=== PATIENT | male | born 1960 | race Caucasian/White ===

== ENCOUNTER 2021-09-23 19:56 | Inpatient (IN) | payer OTHER ==
[2021-09-23 20:21] VITALS: BMI 33.0
[2021-09-23] MEDS ORDERED: ONDANSETRON *ODT* 4 MG TABLET SL PRN (20:35)
[2021-09-23] MEDS ORDERED: P-EPHED 60MG/TRIPROLIDI 2.5MG TABLET PO PRN (20:35)
[2021-09-23] MEDS ORDERED: BISMUTH SUBSALICYLATE 524 MG/30 ML PO PRN (20:35)
[2021-09-23] MEDS ORDERED: NALOXONE (NARCAN) HCL 4 MG/0.1 ML SPRAY NS PRN (20:35)
[2021-09-23] MEDS ORDERED: MAG HYDROX/AL HYDROX/SIMETH 30 ML UNIT-DOSE CUP PO PRN (20:35)
[2021-09-23] MEDS ORDERED: DICYCLOMINE HCL 10 MG CAPSULE PO PRN (20:35)
[2021-09-23] MEDS ORDERED: IBUPROFEN 400 MG TABLET (FP) PO PRN (20:35)
[2021-09-23] MEDS ORDERED: MENTHOL/PHENOL 1 EACH UD MM PRN (20:35)
[2021-09-23] MEDS ORDERED: MAGNESIUM CITRATE 300 ML BOTTLE PO PRN (20:35)
[2021-09-23] MEDS ORDERED: guaiFENesin 200 MG/10 ML 10 ML UNIT-DOSE CUPS PO PRN (20:35)
[2021-09-23] MEDS ORDERED: NALOXONE HCL 0.4 MG/ML VIAL IM PRN (20:35)
[2021-09-23] MEDS ORDERED: MELATONIN 5 MG TABLETS PO SCH (22:00)
[2021-09-23] MEDS ORDERED: QUEtiapine FUMARATE 50 MG TABLET PO ONE (22:00)
[2021-09-23] MEDS: ASPIRIN 81 MG CHEWABLE TABLETS PO SCH (22:31)
[2021-09-23] MEDS: THIAMINE HCL 100 MG TABLET (FP) PO SCH (22:31)
[2021-09-24] MEDS: hydrOXYzine PAMOATE 25 MG CAPSULE (FP) PO PRN ×2 (00:05→04:04)
[2021-09-24] MEDS: METHOCARBAMOL 500 MG TABLET PO PRN ×2 (00:05→06:09)
[2021-09-24] MEDS ORDERED: diazePAM 5 MG TABLET PO SCH (05:00)
[2021-09-24] MEDS ORDERED: metoPROLOL SUCCINATE 25 MG TAB.SR.24H (FP) PO SCH ×3 (06:20→10:00)
[2021-09-24] MEDS: NICOTINE 10 MG CARTRIDGE (INHALER) IH PRN (06:31)
[2021-09-24] MEDS: MAGNESIUM HYDROX 2400MG/30ML ORAL SUSPENSION 30 ML CUP PO PRN ×2 (06:38→23:03)
[2021-09-24] MEDS ORDERED: methaDONE HCL 10 MG TABLET (FOR DETOX USE ONLY) PO ONE (07:14)
[2021-09-24] MEDS: diazePAM 5 MG TABLET PO SCH ×4 (07:38→23:02)
[2021-09-24] MEDS: ASPIRIN 81 MG CHEWABLE TABLETS PO SCH ×2 (09:54→23:01)
[2021-09-24] MEDS: cloNIDine HCL 0.1 MG TABLET PO PRN (09:54)
[2021-09-24] MEDS: CLOPIDOGREL BISULFATE 75 MG TABLET (FP) PO SCH (09:54)
[2021-09-24] MEDS: NICOTINE 21 MG/24 HOURS TOPICAL PATCH TD SCH (09:55)
[2021-09-24] MEDS ORDERED: PATIENT'S OWN MEDICATION (NON-FORMULARY) (Finasteride [Finasteride] 1 MG Tablet) PO SCH (10:00)
[2021-09-24] MEDS: PRENATAL VITAMINS W/ FOLIC ACID TABLET (FP) PO SCH (11:07)
[2021-09-24] MEDS: amLODIPine BESYLATE 10 MG TABLET (FP) PO SCH (12:37)
[2021-09-24] MEDS: ACETAMINOPHEN 325 MG TABLET (FP) PO PRN (12:43)
[2021-09-24] MEDS: THIAMINE HCL 100 MG TABLET (FP) PO SCH (23:01)
[2021-09-24] MEDS: ROSUVASTATIN CA 10 MG TABLET (FP) PO SCH (23:02)
[2021-09-24] MEDS: metoPROLOL SUCCINATE 25 MG TAB.SR.24H (FP) PO SCH (23:02)
[2021-09-24] MEDS: QUEtiapine FUMARATE 100 MG TABLET (FP) PO PRN (23:05)
[2021-09-25] MEDS: diazePAM 5 MG TABLET PO SCH ×3 (05:25→23:01)
[2021-09-25] MEDS ORDERED: methaDONE HCL 10 MG TABLET (FOR DETOX USE ONLY) ONE (09:41)
[2021-09-25] MEDS: ASPIRIN 81 MG CHEWABLE TABLETS PO SCH ×2 (10:15→23:00)
[2021-09-25] MEDS: amLODIPine BESYLATE 10 MG TABLET (FP) PO SCH (10:15)
[2021-09-25] MEDS: CLOPIDOGREL BISULFATE 75 MG TABLET (FP) PO SCH (10:15)
[2021-09-25] MEDS: PRENATAL VITAMINS W/ FOLIC ACID TABLET (FP) PO SCH (10:15)
[2021-09-25] MEDS: metoPROLOL SUCCINATE 25 MG TAB.SR.24H (FP) PO SCH ×2 (10:15→23:01)
[2021-09-25] MEDS: NICOTINE 21 MG/24 HOURS TOPICAL PATCH TD SCH (10:17)
[2021-09-25] MEDS: diazePAM 5 MG TABLET PO PRN (10:19)
[2021-09-25] MEDS ORDERED: FLU VACC QS2021-22(6MOS UP)/PF 60 MCG/0.5 ML SYRINGE IM ONE (12:00)
[2021-09-25] MEDS: cloNIDine HCL 0.1 MG TABLET PO PRN (12:17)
[2021-09-25 12:25] LABS: HEMATOCRIT 38.3 % (35.4-49); HEMOGLOBIN 12.9 GM/dL (11.7-16.9); MCH 29.4 pg (25.7-33.7); MCHC 33.7 g/dl (32.0-35.9); MEAN CELL VOLUME 87.4 fl (80-96); MEAN PLT VOLUME 8.4 fl (7.5-11.1); PLATELET COUNT 193 10^3/uL (134-434); RBC 4.38 M/mm3 (4.00-5.60); WHITE BLOOD COUNT 4.2 K/mm3 (4.0-10.0)
[2021-09-25 12:30] LABS: CALCIUM 8.9 mg/dL (8.5-10.1)
[2021-09-25 12:31] LABS: ALBUMIN 3.5 g/dl (3.4-5.0)
[2021-09-25 12:34] LABS: CREATININE 0.9 mg/dL (0.55-1.3)
[2021-09-25 12:35] LABS: BILIRUBIN,TOTAL 0.6 mg/dL (0.2-1); TOT PROT 6.6 g/dl (6.4-8.2)
[2021-09-25] MEDS: QUEtiapine FUMARATE 100 MG TABLET (FP) PO PRN (23:00)
[2021-09-25] MEDS: THIAMINE HCL 100 MG TABLET (FP) PO SCH (23:00)
[2021-09-25] MEDS: ROSUVASTATIN CA 10 MG TABLET (FP) PO SCH (23:01)
[2021-09-25] MEDS: NICOTINE 10 MG CARTRIDGE (INHALER) IH PRN (23:05)
[2021-09-25] MEDS: MAGNESIUM HYDROX 2400MG/30ML ORAL SUSPENSION 30 ML CUP PO PRN (23:20)
[2021-09-26] MEDS: ROSUVASTATIN CA 10 MG TABLET (FP) PO SCH ×2 (00:44→22:07)
[2021-09-26] MEDS: diazePAM 5 MG TABLET PO SCH ×2 (05:16→17:12)
[2021-09-26] MEDS ORDERED: methaDONE HCL 10 MG TABLET (FOR DETOX USE ONLY) PO ONE ×2 (10:00)
[2021-09-26] MEDS: PRENATAL VITAMINS W/ FOLIC ACID TABLET (FP) PO SCH (10:20)
[2021-09-26] MEDS: diazePAM 5 MG TABLET PO PRN (10:20)
[2021-09-26] MEDS: ASPIRIN 81 MG CHEWABLE TABLETS PO SCH ×2 (10:22→22:07)
[2021-09-26] MEDS: CLOPIDOGREL BISULFATE 75 MG TABLET (FP) PO SCH (10:22)
[2021-09-26] MEDS: NICOTINE 21 MG/24 HOURS TOPICAL PATCH TD SCH (10:22)
[2021-09-26] MEDS: amLODIPine BESYLATE 10 MG TABLET (FP) PO SCH (10:22)
[2021-09-26] MEDS: metoPROLOL SUCCINATE 25 MG TAB.SR.24H (FP) PO SCH ×2 (10:22→22:07)
[2021-09-26] MEDS: DOCUSATE SODIUM 100 MG CAPSULE (FP) PO SCH ×2 (14:41→22:07)
[2021-09-26] MEDS: THIAMINE HCL 100 MG TABLET (FP) PO SCH (22:07)
[2021-09-26] MEDS: QUEtiapine FUMARATE 100 MG TABLET (FP) PO PRN (22:08)
[2021-09-27] MEDS: DOCUSATE SODIUM 100 MG CAPSULE (FP) PO SCH ×3 (05:44→21:22)
[2021-09-27] MEDS ORDERED: diazePAM 5 MG TABLET PO ONE (06:00)
[2021-09-27] MEDS: metoPROLOL SUCCINATE 25 MG TAB.SR.24H (FP) PO SCH ×2 (10:03→21:23)
[2021-09-27] MEDS: ASPIRIN 81 MG CHEWABLE TABLETS PO SCH ×2 (10:03→21:23)
[2021-09-27] MEDS: CLOPIDOGREL BISULFATE 75 MG TABLET (FP) PO SCH (10:03)
[2021-09-27] MEDS: PRENATAL VITAMINS W/ FOLIC ACID TABLET (FP) PO SCH (10:03)
[2021-09-27] MEDS: NICOTINE 21 MG/24 HOURS TOPICAL PATCH TD SCH (10:03)
[2021-09-27] MEDS: amLODIPine BESYLATE 10 MG TABLET (FP) PO SCH (10:03)
[2021-09-27] MEDS: MAGNESIUM HYDROX 2400MG/30ML ORAL SUSPENSION 30 ML CUP PO PRN (10:05)
[2021-09-27] MEDS: ACETAMINOPHEN 325 MG TABLET (FP) PO PRN ×3 (11:23→21:42)
[2021-09-27] MEDS: NICOTINE 10 MG CARTRIDGE (INHALER) IH PRN ×2 (14:01→21:22)
[2021-09-27] MEDS: THIAMINE HCL 100 MG TABLET (FP) PO SCH (21:23)
[2021-09-27] MEDS: QUEtiapine FUMARATE 100 MG TABLET (FP) PO PRN (23:02)
[2021-09-27] MEDS: ROSUVASTATIN CA 10 MG TABLET (FP) PO SCH (23:41)
[2021-09-28] MEDS: ACETAMINOPHEN 325 MG TABLET (FP) PO PRN ×4 (03:00→22:33)
[2021-09-28] MEDS: DOCUSATE SODIUM 100 MG CAPSULE (FP) PO SCH ×2 (06:07→14:50)
[2021-09-28] MEDS: METHOCARBAMOL 500 MG TABLET PO PRN (06:07)
[2021-09-28] MEDS ORDERED: ACETAMINOPHEN 325 MG TABLET (FP) PO ONE (07:30)
[2021-09-28] MEDS: CLOPIDOGREL BISULFATE 75 MG TABLET (FP) PO SCH (09:58)
[2021-09-28] MEDS: PRENATAL VITAMINS W/ FOLIC ACID TABLET (FP) PO SCH (09:58)
[2021-09-28] MEDS: metoPROLOL SUCCINATE 25 MG TAB.SR.24H (FP) PO SCH ×2 (09:58→21:11)
[2021-09-28] MEDS: NICOTINE 21 MG/24 HOURS TOPICAL PATCH TD SCH (09:58)
[2021-09-28] MEDS: ASPIRIN 81 MG CHEWABLE TABLETS PO SCH ×2 (09:58→21:11)
[2021-09-28] MEDS: amLODIPine BESYLATE 10 MG TABLET (FP) PO SCH (09:58)
[2021-09-28] MEDS: NICOTINE 10 MG CARTRIDGE (INHALER) IH PRN (09:59)
[2021-09-28] MEDS ORDERED: methaDONE HCL 10 MG TABLET (FOR DETOX USE ONLY) PO ONE (10:00)
[2021-09-28] MEDS: BACLOFEN 10 MG TABLET (FP) PO PRN (11:14)
[2021-09-28] MEDS: THIAMINE HCL 100 MG TABLET (FP) PO SCH (21:11)
[2021-09-28] MEDS: ROSUVASTATIN CA 10 MG TABLET (FP) PO SCH (21:12)
[2021-09-28] MEDS: QUEtiapine FUMARATE 100 MG TABLET (FP) PO PRN (22:33)
[2021-09-29] MEDS: DOCUSATE SODIUM 100 MG CAPSULE (FP) PO SCH ×4 (00:07→21:24)
[2021-09-29] MEDS: BACLOFEN 10 MG TABLET (FP) PO PRN ×3 (00:08→23:54)
[2021-09-29] MEDS ORDERED: cloNIDine HCL 0.1 MG TABLET PO ONE (00:45)
[2021-09-29] MEDS ORDERED: cloNIDine HCL 0.1 MG TABLET ONE (00:59)
[2021-09-29] MEDS: ACETAMINOPHEN 325 MG TABLET (FP) PO PRN ×3 (04:07→19:45)
[2021-09-29 07:25] VITALS: TEMP 96.9
[2021-09-29] MEDS: PRENATAL VITAMINS W/ FOLIC ACID TABLET (FP) PO SCH (09:30)
[2021-09-29] MEDS: ASPIRIN 81 MG CHEWABLE TABLETS PO SCH ×2 (09:30→21:25)
[2021-09-29] MEDS: CLOPIDOGREL BISULFATE 75 MG TABLET (FP) PO SCH (09:30)
[2021-09-29] MEDS: NICOTINE 21 MG/24 HOURS TOPICAL PATCH TD SCH (09:30)
[2021-09-29] MEDS: metoPROLOL SUCCINATE 25 MG TAB.SR.24H (FP) PO SCH ×2 (09:30→21:25)
[2021-09-29] MEDS: amLODIPine BESYLATE 10 MG TABLET (FP) PO SCH (09:30)
[2021-09-29] MEDS: MAGNESIUM HYDROX 2400MG/30ML ORAL SUSPENSION 30 ML CUP PO PRN (13:17)
[2021-09-29] MEDS ORDERED: QUEtiapine FUMARATE 100 MG TABLET (FP) PO PRN (15:34)
[2021-09-29] MEDS ORDERED: QUETIAPINE FUMARATE 100 MG, QUETIAPINE FUMARATE 25 MG PO PRN (15:53)
[2021-09-29] MEDS ORDERED: QUEtiapine FUMARATE 100 MG TABLET (FP) ONE (18:24)
[2021-09-29] MEDS ORDERED: QUEtiapine FUMARATE 25 MG TABLET ONE (18:24)
[2021-09-29] MEDS: ROSUVASTATIN CA 10 MG TABLET (FP) PO SCH (21:25)
[2021-09-29] MEDS: THIAMINE HCL 100 MG TABLET (FP) PO SCH (21:25)
[2021-09-29 22:07] VITALS: BP 163/90; PULSE 77
[2021-09-30] MEDS ORDERED: diphenhydrAMINE HCL 25 MG CAPSULE (FP) PO ONE (01:02)
== END 2021-09-30 02:15 | disposition left against medical advice (07) | DRG 894 ==
LOC: YASAS 19:56 → Y6N 21:37 → UNDOADMIN 21:37 → UNDODISIN 09-27 13:19 → Y5N 09-27 13:48
PROVIDERS: ADMIT Allergy & Immunology; ATTEND Allergy & Immunology
PROC: HZ2ZZZZ Detoxification Services for Substance Abuse Treatment (ICD-10-PCS; 2021-09-23)
PROC: HZ42ZZZ Group Counseling for Substance Abuse Treatment, Cognitive-Behavioral (ICD-10-PCS; principal; 2021-09-27)
DX: F10.20 Alcohol dependence, uncomplicated (principal); F11.20 Opioid dependence, uncomplicated; F19.280 Other psychoactive substance dependence with psychoactive substance-induced anxiety disorder; F19.282 Other psychoactive substance dependence with psychoactive substance-induced sleep disorder; F32.A Depression, unspecified; G47.00 Insomnia, unspecified; I25.10 Atherosclerotic heart disease of native coronary artery without angina pectoris; I10 Essential (primary) hypertension; Z95.5 Presence of coronary angioplasty implant and graft; Z96.652 Presence of left artificial knee joint; Z85.528 Personal history of other malignant neoplasm of kidney; Z88.0 Allergy status to penicillin
CPT/HCPCS: 36415; 80053; 85027; 86780; 90686; 93005; 93010; C9803; G0008; J0475; J0735; U0003; U0005

== ENCOUNTER 2021-10-21 14:32 | Inpatient (IN) | payer OTHER ==
[2021-10-21 15:47] VITALS: BMI 33.0
[2021-10-21] MEDS ORDERED: MENTHOL/PHENOL 1 EACH UD MM PRN (16:22)
[2021-10-21] MEDS ORDERED: DICYCLOMINE HCL 10 MG CAPSULE PO PRN (16:22)
[2021-10-21] MEDS ORDERED: ACETAMINOPHEN 325 MG TABLET (FP) PO PRN (16:22)
[2021-10-21] MEDS ORDERED: BISMUTH SUBSALICYLATE 524 MG/30 ML PO PRN (16:22)
[2021-10-21] MEDS ORDERED: MAGNESIUM CITRATE 300 ML BOTTLE PO PRN (16:22)
[2021-10-21] MEDS ORDERED: ONDANSETRON *ODT* 4 MG TABLET SL PRN (16:22)
[2021-10-21] MEDS ORDERED: LOPERAMIDE HCL 2 MG CAPSULE PO PRN (16:22)
[2021-10-21] MEDS ORDERED: MAG HYDROX/AL HYDROX/SIMETH 30 ML UNIT-DOSE CUP PO PRN (16:22)
[2021-10-21] MEDS ORDERED: CEPHALEXIN MONOHYDRATE 250 MG CAPSULE (FP) PO SCH (17:30)
[2021-10-21] MEDS: diazePAM 5 MG TABLET PO PRN (18:38)
[2021-10-21] MEDS: CEPHALEXIN MONOHYDRATE 500 MG CAPSULE (UD) PO SCH (18:38)
[2021-10-21] MEDS: hydrOXYzine PAMOATE 25 MG CAPSULE (FP) PO PRN ×2 (18:38→22:49)
[2021-10-21] MEDS: METHOCARBAMOL 500 MG TABLET PO PRN (21:20)
[2021-10-21] MEDS ORDERED: MELATONIN 5 MG TABLETS PO SCH (22:00)
[2021-10-21] MEDS: THIAMINE HCL 100 MG TABLET (FP) PO SCH (22:48)
[2021-10-21] MEDS: ROSUVASTATIN CA 10 MG TABLET (FP) PO SCH (22:49)
[2021-10-21] MEDS ORDERED: QUEtiapine FUMARATE 25 MG TABLET PO ONE (23:42)
[2021-10-22] MEDS: DOXYCYCLINE HYCLATE 100 MG CAPSULE PO SCH ×3 (00:45→22:07)
[2021-10-22] MEDS: CEPHALEXIN MONOHYDRATE 500 MG CAPSULE (UD) PO SCH ×4 (01:20→17:29)
[2021-10-22] MEDS: diazePAM 5 MG TABLET PO PRN (01:27)
[2021-10-22] MEDS: hydrOXYzine PAMOATE 25 MG CAPSULE (FP) PO PRN ×4 (05:16→22:06)
[2021-10-22] MEDS: METHOCARBAMOL 500 MG TABLET PO PRN (05:16)
[2021-10-22] MEDS ORDERED: methaDONE HCL 10 MG TABLET (FOR DETOX USE ONLY) PO ONE (09:12)
[2021-10-22] MEDS ORDERED: diazePAM 5 MG TABLET PO PRN ×2 (09:14→10:16)
[2021-10-22] MEDS: ASPIRIN 81 MG CHEWABLE TABLETS PO SCH (09:34)
[2021-10-22] MEDS ORDERED: amLODIPine BESYLATE 10 MG TABLET (FP) PO SCH (10:00)
[2021-10-22] MEDS ORDERED: RIVAROXABAN 20 MG TABLET PO SCH (10:00)
[2021-10-22] MEDS: PRENATAL VITAMINS W/ FOLIC ACID TABLET (FP) PO SCH (10:32)
[2021-10-22] MEDS: NICOTINE 7 MG/24 HOURS TOPICAL PATCH TD SCH (10:32)
[2021-10-22] MEDS: diazePAM 5 MG TABLET PO SCH ×3 (11:52→22:07)
[2021-10-22] MEDS: ACETAMINOPHEN 325 MG TABLET (FP) PO PRN (14:07)
[2021-10-22] MEDS: THIAMINE HCL 100 MG TABLET (FP) PO SCH (22:06)
[2021-10-22] MEDS: ROSUVASTATIN CA 10 MG TABLET (FP) PO SCH (22:09)
[2021-10-22] MEDS: QUEtiapine FUMARATE 100 MG TABLET (FP) PO PRN (22:09)
[2021-10-23] MEDS: ACETAMINOPHEN 325 MG TABLET (FP) PO PRN ×2 (00:47→10:14)
[2021-10-23] MEDS: CEPHALEXIN MONOHYDRATE 500 MG CAPSULE (UD) PO SCH ×4 (00:47→17:54)
[2021-10-23] MEDS: diazePAM 5 MG TABLET PO SCH ×4 (05:31→22:11)
[2021-10-23] MEDS ORDERED: amLODIPine BESYLATE 10 MG TABLET (FP) PO ONE (07:47)
[2021-10-23] MEDS: MAGNESIUM HYDROX 2400MG/30ML ORAL SUSPENSION 30 ML CUP PO PRN (08:40)
[2021-10-23] MEDS: hydrOXYzine PAMOATE 25 MG CAPSULE (FP) PO PRN (09:21)
[2021-10-23] MEDS: ASPIRIN 81 MG CHEWABLE TABLETS PO SCH (09:21)
[2021-10-23] MEDS: METHOCARBAMOL 500 MG TABLET PO PRN (09:21)
[2021-10-23] MEDS ORDERED: methaDONE HCL 10 MG TABLET (FOR DETOX USE ONLY) PO ONE (10:00)
[2021-10-23] MEDS: PRENATAL VITAMINS W/ FOLIC ACID TABLET (FP) PO SCH (10:41)
[2021-10-23] MEDS: NICOTINE 7 MG/24 HOURS TOPICAL PATCH TD SCH (10:41)
[2021-10-23] MEDS: DOXYCYCLINE HYCLATE 100 MG CAPSULE PO SCH ×2 (13:53→22:10)
[2021-10-23] MEDS: DOCUSATE SODIUM 100 MG CAPSULE (FP) PO PRN ×2 (14:56→22:14)
[2021-10-23] MEDS: RIVAROXABAN 20 MG TABLET PO SCH (17:55)
[2021-10-23] MEDS: THIAMINE HCL 100 MG TABLET (FP) PO SCH (22:10)
[2021-10-23] MEDS: ROSUVASTATIN CA 10 MG TABLET (FP) PO SCH (22:10)
[2021-10-23] MEDS: QUEtiapine FUMARATE 100 MG TABLET (FP) PO PRN ×2 (22:14→22:58)
[2021-10-24] MEDS: CEPHALEXIN MONOHYDRATE 500 MG CAPSULE (UD) PO SCH ×4 (01:41→17:35)
[2021-10-24] MEDS: amLODIPine BESYLATE 10 MG TABLET (FP) PO SCH (06:31)
[2021-10-24] MEDS: diazePAM 5 MG TABLET PO SCH ×3 (06:32→22:13)
[2021-10-24] MEDS ORDERED: amLODIPine BESYLATE 10 MG TABLET (FP) PO SCH (10:00)
[2021-10-24] MEDS ORDERED: methaDONE HCL 10 MG TABLET (FOR DETOX USE ONLY) PO ONE (10:00)
[2021-10-24] MEDS: ASPIRIN 81 MG CHEWABLE TABLETS PO SCH (10:12)
[2021-10-24] MEDS: METHOCARBAMOL 500 MG TABLET PO PRN (10:12)
[2021-10-24] MEDS: hydrOXYzine PAMOATE 25 MG CAPSULE (FP) PO PRN ×2 (10:12→17:36)
[2021-10-24] MEDS: NICOTINE 7 MG/24 HOURS TOPICAL PATCH TD SCH (10:13)
[2021-10-24] MEDS: PRENATAL VITAMINS W/ FOLIC ACID TABLET (FP) PO SCH (10:13)
[2021-10-24] MEDS: DOXYCYCLINE HYCLATE 100 MG CAPSULE PO SCH ×2 (10:14→22:14)
[2021-10-24] MEDS: ACETAMINOPHEN 325 MG TABLET (FP) PO PRN (11:17)
[2021-10-24] MEDS: RIVAROXABAN 20 MG TABLET PO SCH (17:35)
[2021-10-24] MEDS: QUEtiapine FUMARATE 100 MG TABLET (FP) PO PRN (22:13)
[2021-10-24] MEDS: ROSUVASTATIN CA 10 MG TABLET (FP) PO SCH (22:13)
[2021-10-24] MEDS: THIAMINE HCL 100 MG TABLET (FP) PO SCH (22:14)
[2021-10-25] MEDS: amLODIPine BESYLATE 10 MG TABLET (FP) PO SCH (05:27)
[2021-10-25] MEDS: diazePAM 5 MG TABLET PO SCH ×2 (05:27→18:03)
[2021-10-25] MEDS: ACETAMINOPHEN 325 MG TABLET (FP) PO PRN ×2 (05:28→18:02)
[2021-10-25] MEDS: DOCUSATE SODIUM 100 MG CAPSULE (FP) PO PRN ×3 (05:32→22:51)
[2021-10-25] MEDS ORDERED: methaDONE HCL 10 MG TABLET (FOR DETOX USE ONLY) PO ONE (10:00)
[2021-10-25] MEDS: NICOTINE 7 MG/24 HOURS TOPICAL PATCH TD SCH (10:43)
[2021-10-25] MEDS: hydrOXYzine PAMOATE 25 MG CAPSULE (FP) PO PRN (10:43)
[2021-10-25] MEDS: PRENATAL VITAMINS W/ FOLIC ACID TABLET (FP) PO SCH (10:43)
[2021-10-25] MEDS: ASPIRIN 81 MG CHEWABLE TABLETS PO SCH (10:43)
[2021-10-25] MEDS: RIVAROXABAN 20 MG TABLET PO SCH (18:04)
[2021-10-25] MEDS: QUEtiapine FUMARATE 100 MG TABLET (FP) PO PRN (22:13)
[2021-10-25] MEDS: ROSUVASTATIN CA 10 MG TABLET (FP) PO SCH (22:13)
[2021-10-25] MEDS: THIAMINE HCL 100 MG TABLET (FP) PO SCH (22:14)
[2021-10-26] MEDS: amLODIPine BESYLATE 10 MG TABLET (FP) PO SCH (05:08)
[2021-10-26] MEDS: DOCUSATE SODIUM 100 MG CAPSULE (FP) PO PRN (05:17)
[2021-10-26] MEDS: ACETAMINOPHEN 325 MG TABLET (FP) PO PRN ×2 (05:59→12:26)
[2021-10-26] MEDS ORDERED: diazePAM 5 MG TABLET PO ONE (06:00)
[2021-10-26] MEDS ORDERED: methaDONE HCL 10 MG TABLET (FOR DETOX USE ONLY) PO ONE (10:00)
[2021-10-26] MEDS: PRENATAL VITAMINS W/ FOLIC ACID TABLET (FP) PO SCH (10:20)
[2021-10-26] MEDS: ASPIRIN 81 MG CHEWABLE TABLETS PO SCH (10:21)
[2021-10-26] MEDS: NICOTINE 7 MG/24 HOURS TOPICAL PATCH TD SCH (10:21)
[2021-10-26] MEDS: MAGNESIUM HYDROX 2400MG/30ML ORAL SUSPENSION 30 ML CUP PO PRN (11:15)
[2021-10-26 13:31] VITALS: BP 158/76; PULSE 82; TEMP 97.3
== END 2021-10-26 14:32 | disposition home or self-care (01) | DRG 897 ==
LOC: YASAS 14:32 → Y6N 16:55
PROVIDERS: ADMIT Allergy & Immunology; ATTEND Allergy & Immunology
PROC: HZ2ZZZZ Detoxification Services for Substance Abuse Treatment (ICD-10-PCS; principal; 2021-10-21)
DX: F11.23 Opioid dependence with withdrawal (principal); F19.282 Other psychoactive substance dependence with psychoactive substance-induced sleep disorder; F19.280 Other psychoactive substance dependence with psychoactive substance-induced anxiety disorder; F10.230 Alcohol dependence with withdrawal, uncomplicated; F17.210 Nicotine dependence, cigarettes, uncomplicated; F19.24 Other psychoactive substance dependence with psychoactive substance-induced mood disorder; I10 Essential (primary) hypertension; I25.10 Atherosclerotic heart disease of native coronary artery without angina pectoris; E78.1 Pure hyperglyceridemia; M17.0 Bilateral primary osteoarthritis of knee; R00.0 Tachycardia, unspecified; Z96.652 Presence of left artificial knee joint; Z95.5 Presence of coronary angioplasty implant and graft; Z56.0 Unemployment, unspecified
CPT/HCPCS: C9803; U0003; U0005

== ENCOUNTER 2021-11-10 09:54 | Inpatient (IN) | payer OTHER ==
[2021-11-10] MEDS ORDERED: diazePAM 5 MG TABLET PO PRN (10:54)
[2021-11-10] MEDS ORDERED: MAGNESIUM CITRATE 300 ML BOTTLE PO PRN (10:54)
[2021-11-10] MEDS ORDERED: ACETAMINOPHEN 325 MG TABLET (FP) PO PRN ×2 (10:54)
[2021-11-10] MEDS ORDERED: MENTHOL/PHENOL 1 EACH UD MM PRN (10:54)
[2021-11-10] MEDS ORDERED: BISMUTH SUBSALICYLATE 262 MG/15 ML BTL PO PRN (10:54)
[2021-11-10] MEDS ORDERED: MAGNESIUM HYDROX 2400MG/30ML ORAL SUSPENSION 30 ML CUP PO PRN (10:54)
[2021-11-10] MEDS ORDERED: ONDANSETRON *ODT* 4 MG TABLET SL PRN (10:54)
[2021-11-10] MEDS ORDERED: MAG HYDROX/AL HYDROX/SIMETH 30 ML UNIT-DOSE CUP PO PRN (10:54)
[2021-11-10] MEDS ORDERED: IBUPROFEN 400 MG TABLET (FP) PO PRN (10:54)
[2021-11-10 11:17] VITALS: BMI 33.0
[2021-11-10] MEDS ORDERED: diazePAM 5 MG TABLET ONE (11:39)
[2021-11-10] MEDS: diazePAM 5 MG TABLET PO SCH ×3 (11:43→22:18)
[2021-11-10] MEDS: hydrOXYzine PAMOATE 25 MG CAPSULE (FP) PO SCH ×3 (13:17→22:17)
[2021-11-10] MEDS ORDERED: MELATONIN 5 MG TABLETS PO SCH (22:00)
[2021-11-10] MEDS ORDERED: QUEtiapine FUMARATE 100 MG TABLET (FP) PO PRN (22:00)
[2021-11-10] MEDS ORDERED: ROSUVASTATIN CA 10 MG TABLET PO SCH (22:00)
[2021-11-10] MEDS ORDERED: metoPROLOL SUCCINATE 25 MG TAB.SR.24H (FP) PO SCH (22:00)
[2021-11-10] MEDS ORDERED: THIAMINE HCL 100 MG TABLET (FP) PO SCH (22:00)
[2021-11-10] MEDS: METHOCARBAMOL 500 MG TABLET PO PRN (22:17)
[2021-11-11] MEDS: hydrOXYzine PAMOATE 25 MG CAPSULE (FP) PO SCH ×4 (05:03→17:42)
[2021-11-11] MEDS: diazePAM 5 MG TABLET PO SCH ×3 (05:03→17:43)
[2021-11-11] MEDS ORDERED: PRENATAL VITAMINS W/ FOLIC ACID TABLET (FP) PO SCH (10:00)
[2021-11-11] MEDS: METHOCARBAMOL 500 MG TABLET PO PRN ×2 (10:06→19:40)
[2021-11-11] MEDS ORDERED: PATIENT'S OWN MEDICATION (NON-FORMULARY) (Finasteride [Finasteride] 1 MG Tablet) PO SCH (11:00)
[2021-11-11] MEDS ORDERED: amLODIPine BESYLATE 10 MG TABLET (FP) PO SCH (11:00)
[2021-11-11] MEDS: NICOTINE 10 MG CARTRIDGE (INHALER) IH PRN ×2 (11:29→18:05)
[2021-11-11] MEDS ORDERED: QUEtiapine FUMARATE 100 MG TABLET (FP) PO PRN (11:46)
[2021-11-11] MEDS ORDERED: NICOTINE 14 MG/24 HOURS TOPICAL PATCH TD SCH (12:45)
[2021-11-11] MEDS ORDERED: RIVAROXABAN 20 MG TABLET PO SCH ×2 (18:00)
[2021-11-11 21:22] VITALS: BP 139/84; PULSE 100; TEMP 98.9
[2021-11-11] MEDS ORDERED: PHENOL 177 ML SPRAY BOTTLE MM PRN (22:35)
[2021-11-12] MEDS ORDERED: diazePAM 5 MG TABLET PO SCH (06:00)
[2021-11-12] MEDS ORDERED: ASPIRIN 81 MG CHEWABLE TABLETS PO SCH (07:00)
[2021-11-13] MEDS ORDERED: diazePAM 5 MG TABLET PO SCH (06:00)
[2021-11-14] MEDS ORDERED: diazePAM 5 MG TABLET PO ONE (06:00)
== END 2021-11-11 22:55 | disposition left against medical advice (07) | DRG 894 ==
LOC: YASAS 09:54 → Y6N 12:47
PROVIDERS: ADMIT Allergy & Immunology; ATTEND Allergy & Immunology
PROC: HZ2ZZZZ Detoxification Services for Substance Abuse Treatment (ICD-10-PCS; principal; 2021-11-10)
DX: F10.230 Alcohol dependence with withdrawal, uncomplicated (principal); F17.210 Nicotine dependence, cigarettes, uncomplicated; E78.5 Hyperlipidemia, unspecified; I25.10 Atherosclerotic heart disease of native coronary artery without angina pectoris; I10 Essential (primary) hypertension; M17.0 Bilateral primary osteoarthritis of knee; Z96.652 Presence of left artificial knee joint; Z95.1 Presence of aortocoronary bypass graft; Z95.5 Presence of coronary angioplasty implant and graft; Z79.01 Long term (current) use of anticoagulants; Z88.0 Allergy status to penicillin
CPT/HCPCS: C9803; U0003; U0005

== ENCOUNTER 2022-03-11 11:16 | Inpatient (IN) | payer OTHER ==
[2022-03-11] MEDS ORDERED: ACETAMINOPHEN 325 MG TABLET (FP) PO PRN (13:29)
[2022-03-11] MEDS ORDERED: LOPERAMIDE HCL 2 MG CAPSULE PO PRN (13:29)
[2022-03-11] MEDS ORDERED: DICYCLOMINE HCL 10 MG CAPSULE PO PRN (13:29)
[2022-03-11] MEDS ORDERED: ONDANSETRON *ODT* 4 MG TABLET SL PRN (13:29)
[2022-03-11] MEDS ORDERED: MAG HYDROX/AL HYDROX/SIMETH 30 ML UNIT-DOSE CUP PO PRN (13:29)
[2022-03-11] MEDS ORDERED: BENZOCAINE/MENTHOL (CHLORASEPTIC ) LOZENGE MM PRN (13:29)
[2022-03-11] MEDS ORDERED: LORazepam 1 MG TABLET PO PRN (13:29)
[2022-03-11] MEDS ORDERED: MAGNESIUM CITRATE 300 ML BOTTLE PO PRN (13:29)
[2022-03-11 13:42] VITALS: BMI 34.7
[2022-03-11] MEDS ORDERED: LORazepam 1 MG TABLET ONE (13:52)
[2022-03-11] MEDS ORDERED: chlordiazePOXIDE HCL 25 MG CAPSULE PO ONE (16:54)
[2022-03-11] MEDS ORDERED: chlordiazePOXIDE HCL 25 MG CAPSULE PO PRN (16:54)
[2022-03-11] MEDS ORDERED: LORazepam 2 MG TABLET PO SCH (17:00)
[2022-03-11] MEDS: ACETAMINOPHEN 325 MG TABLET (FP) PO PRN (21:12)
[2022-03-11] MEDS: ROSUVASTATIN CA 10 MG TABLET PO SCH (22:21)
[2022-03-11] MEDS: chlordiazePOXIDE HCL 25 MG CAPSULE PO SCH (22:21)
[2022-03-11] MEDS: MELATONIN 5 MG TABLETS PO SCH (22:21)
[2022-03-11] MEDS: metoPROLOL SUCCINATE 25 MG TAB.SR.24H (FP) PO SCH (22:21)
[2022-03-11] MEDS: THIAMINE HCL 100 MG TABLET (FP) PO SCH (22:21)
[2022-03-12] MEDS: ACETAMINOPHEN 325 MG TABLET (FP) PO PRN ×2 (02:16→12:10)
[2022-03-12] MEDS: chlordiazePOXIDE HCL 25 MG CAPSULE PO SCH ×4 (05:16→22:22)
[2022-03-12] MEDS: ASPIRIN 81 MG CHEWABLE TABLETS PO SCH (06:20)
[2022-03-12] MEDS ORDERED: PATIENT'S OWN MEDICATION (NON-FORMULARY) (Finasteride [Finasteride] 1 MG Tablet) PO SCH (10:00)
[2022-03-12] MEDS: metoPROLOL SUCCINATE 25 MG TAB.SR.24H (FP) PO SCH ×2 (10:14→21:29)
[2022-03-12] MEDS: PRENATAL VITAMINS W/ FOLIC ACID TABLET (FP) PO SCH (10:15)
[2022-03-12] MEDS: amLODIPine BESYLATE 10 MG TABLET (FP) PO SCH (10:17)
[2022-03-12] MEDS: hydrOXYzine PAMOATE 25 MG CAPSULE (FP) PO PRN (12:09)
[2022-03-12] MEDS: FINASTERIDE 5 MG TABLET (FP) PO SCH (12:09)
[2022-03-12 12:32] LABS: HEMATOCRIT 26.2 % (35.4-49); HEMOGLOBIN 8.2 GM/dL (11.7-16.9); INR 1.07 (0.83-1.09); MCH 20.8 pg (25.7-33.7); MCHC 31.2 g/dl (32.0-35.9); MEAN CELL VOLUME 66.7 fl (80-96); MEAN PLT VOLUME 7.9 fl (7.5-11.1); PLATELET COUNT 265 10^3/uL (134-434); PROTHROMBIN TIME (PATIENT) 12.3 SEC (9.7-13.0); RBC 3.92 M/mm3 (4.00-5.60); RDW 23.5 % (11.9-15.9); WHITE BLOOD COUNT 3.9 K/mm3 (4.0-10.0)
[2022-03-12 13:14] LABS: ALBUMIN 3.6 g/dl (3.4-5.0); CALCIUM 8.6 mg/dL (8.5-10.1)
[2022-03-12 13:17] LABS: CREATININE 1.1 mg/dL (0.55-1.3)
[2022-03-12 13:19] LABS: BILIRUBIN,TOTAL 0.8 mg/dL (0.2-1)
[2022-03-12 13:20] LABS: TOT PROT 6.5 g/dl (6.4-8.2)
[2022-03-12] MEDS: RIVAROXABAN 20 MG TABLET PO SCH (18:17)
[2022-03-12] MEDS: NICOTINE 10 MG CARTRIDGE (INHALER) IH PRN (18:19)
[2022-03-12] MEDS: QUEtiapine FUMARATE 100 MG TABLET (FP) PO PRN (21:28)
[2022-03-12] MEDS: MELATONIN 5 MG TABLETS PO SCH (21:29)
[2022-03-12] MEDS: ROSUVASTATIN CA 10 MG TABLET PO SCH (21:29)
[2022-03-12] MEDS: THIAMINE HCL 100 MG TABLET (FP) PO SCH (21:29)
[2022-03-13] MEDS ORDERED: LORazepam 1 MG TABLET PO SCH (05:00)
[2022-03-13] MEDS: chlordiazePOXIDE HCL 25 MG CAPSULE PO SCH ×5 (08:15→22:15)
[2022-03-13] MEDS: ASPIRIN 81 MG CHEWABLE TABLETS PO SCH (08:16)
[2022-03-13] MEDS: amLODIPine BESYLATE 10 MG TABLET (FP) PO SCH (10:23)
[2022-03-13] MEDS: PRENATAL VITAMINS W/ FOLIC ACID TABLET (FP) PO SCH (10:23)
[2022-03-13] MEDS: FINASTERIDE 5 MG TABLET (FP) PO SCH (10:24)
[2022-03-13] MEDS: metoPROLOL SUCCINATE 25 MG TAB.SR.24H (FP) PO SCH ×2 (10:24→22:17)
[2022-03-13] MEDS: ACETAMINOPHEN 325 MG TABLET (FP) PO PRN (15:54)
[2022-03-13 16:08] LABS: SARS-CoV-2 NAA Not Detected (Not Detected)
[2022-03-13] MEDS: RIVAROXABAN 20 MG TABLET PO SCH (18:06)
[2022-03-13] MEDS: ROSUVASTATIN CA 10 MG TABLET PO SCH (22:14)
[2022-03-13] MEDS: QUEtiapine FUMARATE 100 MG TABLET (FP) PO PRN (22:14)
[2022-03-13] MEDS: THIAMINE HCL 100 MG TABLET (FP) PO SCH (22:14)
[2022-03-13] MEDS: MELATONIN 5 MG TABLETS PO SCH (22:14)
[2022-03-13] MEDS: METHOCARBAMOL 500 MG TABLET PO PRN (22:15)
[2022-03-14] MEDS ORDERED: chlordiazePOXIDE HCL 10 MG CAPSULE PO PRN
[2022-03-14] MEDS: ACETAMINOPHEN 325 MG TABLET (FP) PO PRN ×2 (00:58→10:05)
[2022-03-14] MEDS ORDERED: LORazepam 0.5 MG TABLET PO SCH ×2 (05:00→22:00)
[2022-03-14] MEDS: ASPIRIN 81 MG CHEWABLE TABLETS PO SCH (07:09)
[2022-03-14] MEDS: chlordiazePOXIDE HCL 10 MG CAPSULE PO SCH ×2 (07:09→10:03)
[2022-03-14] MEDS: metoPROLOL SUCCINATE 25 MG TAB.SR.24H (FP) PO SCH ×2 (10:03→21:37)
[2022-03-14] MEDS: amLODIPine BESYLATE 10 MG TABLET (FP) PO SCH (10:03)
[2022-03-14] MEDS: PRENATAL VITAMINS W/ FOLIC ACID TABLET (FP) PO SCH (10:03)
[2022-03-14] MEDS: FINASTERIDE 5 MG TABLET (FP) PO SCH (10:06)
[2022-03-14] MEDS: METHOCARBAMOL 500 MG TABLET PO PRN ×2 (12:53→18:30)
[2022-03-14] MEDS: hydrOXYzine PAMOATE 25 MG CAPSULE (FP) PO PRN ×2 (12:53→18:30)
[2022-03-14] MEDS ORDERED: LORazepam 0.5 MG TABLET PO PRN ×2 (16:02)
[2022-03-14] MEDS: RIVAROXABAN 20 MG TABLET PO SCH (17:54)
[2022-03-14] MEDS: ROSUVASTATIN CA 10 MG TABLET PO SCH (21:37)
[2022-03-14] MEDS: THIAMINE HCL 100 MG TABLET (FP) PO SCH (21:37)
[2022-03-14] MEDS: QUEtiapine FUMARATE 100 MG TABLET (FP) PO PRN (21:38)
[2022-03-14] MEDS: DOCUSATE SODIUM 100 MG CAPSULE (FP) PO PRN (21:40)
[2022-03-14] MEDS: MELATONIN 5 MG TABLETS PO SCH (22:05)
[2022-03-15] MEDS ORDERED: chlordiazePOXIDE HCL 10 MG CAPSULE PO SCH (05:00)
[2022-03-15] MEDS ORDERED: LORazepam 0.5 MG TABLET PO ONE (05:00)
[2022-03-15] MEDS: ASPIRIN 81 MG CHEWABLE TABLETS PO SCH (06:05)
[2022-03-15] MEDS: LORazepam 0.5 MG TABLET PO SCH ×2 (06:06→17:55)
[2022-03-15] MEDS: MAGNESIUM HYDROX 2400MG/30ML ORAL SUSPENSION 30 ML CUP PO PRN (09:16)
[2022-03-15] MEDS: metoPROLOL SUCCINATE 25 MG TAB.SR.24H (FP) PO SCH ×2 (10:12→22:23)
[2022-03-15] MEDS: FINASTERIDE 5 MG TABLET (FP) PO SCH (10:12)
[2022-03-15] MEDS: amLODIPine BESYLATE 10 MG TABLET (FP) PO SCH (10:12)
[2022-03-15] MEDS: PRENATAL VITAMINS W/ FOLIC ACID TABLET (FP) PO SCH (10:12)
[2022-03-15 11:00] LABS: HEMATOCRIT 27.6 % (35.4-49); HEMOGLOBIN 8.4 GM/dL (11.7-16.9); MCHC 30.6 g/dl (32.0-35.9); MEAN CELL VOLUME 68.5 fl (80-96); MEAN PLT VOLUME 8.4 fl (7.5-11.1); PLATELET COUNT 257 10^3/uL (134-434); RBC 4.03 M/mm3 (4.00-5.60); RDW 23.7 % (11.9-15.9); RETICULOCYTES 2.64 % (0.5-1.5); WHITE BLOOD COUNT 6.3 K/mm3 (4.0-10.0)
[2022-03-15] MEDS: RIVAROXABAN 20 MG TABLET PO SCH (17:54)
[2022-03-15] MEDS: ROSUVASTATIN CA 10 MG TABLET PO SCH (22:23)
[2022-03-15] MEDS: DOCUSATE SODIUM 100 MG CAPSULE (FP) PO PRN (22:23)
[2022-03-15] MEDS: QUEtiapine FUMARATE 100 MG TABLET (FP) PO PRN (22:23)
[2022-03-15] MEDS: THIAMINE HCL 100 MG TABLET (FP) PO SCH (22:23)
[2022-03-15] MEDS: MELATONIN 5 MG TABLETS PO SCH (22:30)
[2022-03-16] MEDS: ACETAMINOPHEN 325 MG TABLET (FP) PO PRN ×3 (00:01→23:11)
[2022-03-16] MEDS ORDERED: chlordiazePOXIDE HCL 10 MG CAPSULE PO ONE (05:00)
[2022-03-16] MEDS ORDERED: LORazepam 0.5 MG TABLET PO ONE (06:00)
[2022-03-16] MEDS: FERROUS SO4 325 MG TABLET (FP) PO SCH ×3 (07:09→17:58)
[2022-03-16] MEDS: ASPIRIN 81 MG CHEWABLE TABLETS PO SCH (07:09)
[2022-03-16] MEDS: amLODIPine BESYLATE 10 MG TABLET (FP) PO SCH (10:19)
[2022-03-16] MEDS: metoPROLOL SUCCINATE 25 MG TAB.SR.24H (FP) PO SCH ×2 (10:19→21:38)
[2022-03-16] MEDS: PRENATAL VITAMINS W/ FOLIC ACID TABLET (FP) PO SCH (10:19)
[2022-03-16] MEDS: FINASTERIDE 5 MG TABLET (FP) PO SCH (10:19)
[2022-03-16] MEDS: DOCUSATE SODIUM 100 MG CAPSULE (FP) PO PRN (10:20)
[2022-03-16] MEDS: MAGNESIUM HYDROX 2400MG/30ML ORAL SUSPENSION 30 ML CUP PO PRN (10:20)
[2022-03-16] MEDS: NICOTINE POLACRILEX 2 MG GUM BUC PRN (16:43)
[2022-03-16] MEDS: NICOTINE 10 MG CARTRIDGE (INHALER) IH PRN (17:58)
[2022-03-16] MEDS: MELATONIN 5 MG TABLETS PO SCH (21:38)
[2022-03-16] MEDS: THIAMINE HCL 100 MG TABLET (FP) PO SCH (21:38)
[2022-03-16] MEDS: METHOCARBAMOL 500 MG TABLET PO PRN (21:39)
[2022-03-16] MEDS: RIVAROXABAN 20 MG TABLET PO SCH (22:44)
[2022-03-16] MEDS: QUEtiapine FUMARATE 100 MG TABLET (FP) PO PRN (22:45)
[2022-03-16] MEDS: ROSUVASTATIN CA 10 MG TABLET PO SCH (23:54)
[2022-03-17] MEDS: ASPIRIN 81 MG CHEWABLE TABLETS PO SCH (06:40)
[2022-03-17] MEDS: DOCUSATE SODIUM 100 MG CAPSULE (FP) PO PRN ×2 (06:42→19:30)
[2022-03-17] MEDS: FERROUS SO4 325 MG TABLET (FP) PO SCH ×3 (07:21→17:35)
[2022-03-17] MEDS: amLODIPine BESYLATE 10 MG TABLET (FP) PO SCH (10:11)
[2022-03-17] MEDS: PRENATAL VITAMINS W/ FOLIC ACID TABLET (FP) PO SCH (10:11)
[2022-03-17] MEDS: metoPROLOL SUCCINATE 25 MG TAB.SR.24H (FP) PO SCH ×2 (10:11→21:01)
[2022-03-17] MEDS: METHOCARBAMOL 500 MG TABLET PO PRN (10:13)
[2022-03-17] MEDS: hydrOXYzine PAMOATE 25 MG CAPSULE (FP) PO PRN (10:13)
[2022-03-17] MEDS: ACETAMINOPHEN 325 MG TABLET (FP) PO PRN (10:13)
[2022-03-17] MEDS: NICOTINE 10 MG CARTRIDGE (INHALER) IH PRN ×2 (10:14→21:03)
[2022-03-17] MEDS: NICOTINE POLACRILEX 2 MG GUM BUC PRN ×2 (10:15→19:31)
[2022-03-17] MEDS: FINASTERIDE 5 MG TABLET (FP) PO SCH (12:32)
[2022-03-17] MEDS: RIVAROXABAN 20 MG TABLET PO SCH (17:35)
[2022-03-17] MEDS: THIAMINE HCL 100 MG TABLET (FP) PO SCH (21:02)
[2022-03-17] MEDS: MELATONIN 5 MG TABLETS PO SCH (21:02)
[2022-03-17] MEDS: ROSUVASTATIN CA 10 MG TABLET PO SCH (22:04)
[2022-03-17] MEDS: QUEtiapine FUMARATE 100 MG TABLET (FP) PO PRN (22:09)
[2022-03-18] MEDS: ACETAMINOPHEN 325 MG TABLET (FP) PO PRN ×3 (00:48→22:46)
[2022-03-18] MEDS: MAGNESIUM HYDROX 2400MG/30ML ORAL SUSPENSION 30 ML CUP PO PRN ×2 (05:57→22:46)
[2022-03-18] MEDS: ASPIRIN 81 MG CHEWABLE TABLETS PO SCH (06:02)
[2022-03-18] MEDS: FERROUS SO4 325 MG TABLET (FP) PO SCH ×3 (08:09→18:17)
[2022-03-18] MEDS: PRENATAL VITAMINS W/ FOLIC ACID TABLET (FP) PO SCH (09:26)
[2022-03-18] MEDS: metoPROLOL SUCCINATE 25 MG TAB.SR.24H (FP) PO SCH ×2 (09:26→21:21)
[2022-03-18] MEDS: FINASTERIDE 5 MG TABLET (FP) PO SCH (09:26)
[2022-03-18] MEDS: amLODIPine BESYLATE 10 MG TABLET (FP) PO SCH (09:26)
[2022-03-18] MEDS: DOCUSATE SODIUM 100 MG CAPSULE (FP) PO PRN (09:26)
[2022-03-18] MEDS: NICOTINE 10 MG CARTRIDGE (INHALER) IH PRN (10:58)
[2022-03-18] MEDS: NICOTINE POLACRILEX 2 MG GUM BUC PRN ×2 (10:58→15:11)
[2022-03-18] MEDS: hydrOXYzine PAMOATE 25 MG CAPSULE (FP) PO PRN (14:22)
[2022-03-18] MEDS: MELATONIN 5 MG TABLETS PO SCH (21:21)
[2022-03-18] MEDS: ROSUVASTATIN CA 10 MG TABLET PO SCH (21:21)
[2022-03-18] MEDS: THIAMINE HCL 100 MG TABLET (FP) PO SCH (21:21)
[2022-03-18] MEDS: RIVAROXABAN 20 MG TABLET PO SCH (22:45)
[2022-03-18] MEDS: QUEtiapine FUMARATE 100 MG TABLET (FP) PO PRN (22:52)
[2022-03-19] MEDS: ACETAMINOPHEN 325 MG TABLET (FP) PO PRN ×2 (05:59→22:10)
[2022-03-19] MEDS: ASPIRIN 81 MG CHEWABLE TABLETS PO SCH (05:59)
[2022-03-19] MEDS: DOCUSATE SODIUM 100 MG CAPSULE (FP) PO PRN ×2 (06:00→10:18)
[2022-03-19] MEDS: NICOTINE 10 MG CARTRIDGE (INHALER) IH PRN (06:01)
[2022-03-19] MEDS: FERROUS SO4 325 MG TABLET (FP) PO SCH ×3 (07:05→17:40)
[2022-03-19] MEDS: amLODIPine BESYLATE 10 MG TABLET (FP) PO SCH (10:17)
[2022-03-19] MEDS: FINASTERIDE 5 MG TABLET (FP) PO SCH (10:17)
[2022-03-19] MEDS: metoPROLOL SUCCINATE 25 MG TAB.SR.24H (FP) PO SCH ×2 (10:17→21:33)
[2022-03-19] MEDS: PRENATAL VITAMINS W/ FOLIC ACID TABLET (FP) PO SCH (10:17)
[2022-03-19] MEDS: RIVAROXABAN 20 MG TABLET PO SCH (18:45)
[2022-03-19] MEDS: THIAMINE HCL 100 MG TABLET (FP) PO SCH (21:32)
[2022-03-19] MEDS: MELATONIN 5 MG TABLETS PO SCH (21:32)
[2022-03-19] MEDS: ROSUVASTATIN CA 10 MG TABLET PO SCH (21:33)
[2022-03-19] MEDS: QUEtiapine FUMARATE 100 MG TABLET (FP) PO PRN (22:10)
[2022-03-20] MEDS: MAGNESIUM HYDROX 2400MG/30ML ORAL SUSPENSION 30 ML CUP PO PRN (05:13)
[2022-03-20] MEDS: ACETAMINOPHEN 325 MG TABLET (FP) PO PRN ×2 (06:14→21:44)
[2022-03-20] MEDS: ASPIRIN 81 MG CHEWABLE TABLETS PO SCH (06:15)
[2022-03-20] MEDS: FERROUS SO4 325 MG TABLET (FP) PO SCH ×3 (07:54→17:50)
[2022-03-20] MEDS: DOCUSATE SODIUM 100 MG CAPSULE (FP) PO PRN ×2 (07:55→10:26)
[2022-03-20] MEDS: PRENATAL VITAMINS W/ FOLIC ACID TABLET (FP) PO SCH (10:24)
[2022-03-20] MEDS: amLODIPine BESYLATE 10 MG TABLET (FP) PO SCH (10:25)
[2022-03-20] MEDS: FINASTERIDE 5 MG TABLET (FP) PO SCH (10:25)
[2022-03-20] MEDS: metoPROLOL SUCCINATE 25 MG TAB.SR.24H (FP) PO SCH ×2 (10:25→21:19)
[2022-03-20] MEDS: NICOTINE POLACRILEX 2 MG GUM BUC PRN (12:12)
[2022-03-20] MEDS: RIVAROXABAN 20 MG TABLET PO SCH (18:36)
[2022-03-20] MEDS: MELATONIN 5 MG TABLETS PO SCH (21:19)
[2022-03-20] MEDS: THIAMINE HCL 100 MG TABLET (FP) PO SCH (21:19)
[2022-03-20] MEDS: ROSUVASTATIN CA 10 MG TABLET PO SCH (21:19)
[2022-03-20] MEDS: QUEtiapine FUMARATE 100 MG TABLET (FP) PO PRN (22:11)
[2022-03-21] MEDS: ACETAMINOPHEN 325 MG TABLET (FP) PO PRN ×2 (06:19→23:08)
[2022-03-21] MEDS: ASPIRIN 81 MG CHEWABLE TABLETS PO SCH (06:20)
[2022-03-21] MEDS: FERROUS SO4 325 MG TABLET (FP) PO SCH ×3 (07:20→17:00)
[2022-03-21] MEDS: PRENATAL VITAMINS W/ FOLIC ACID TABLET (FP) PO SCH (10:23)
[2022-03-21] MEDS: amLODIPine BESYLATE 10 MG TABLET (FP) PO SCH (10:23)
[2022-03-21] MEDS: metoPROLOL SUCCINATE 25 MG TAB.SR.24H (FP) PO SCH ×2 (10:23→21:13)
[2022-03-21] MEDS: FINASTERIDE 5 MG TABLET (FP) PO SCH (10:23)
[2022-03-21] MEDS: NICOTINE POLACRILEX 2 MG GUM BUC PRN ×2 (10:45→15:30)
[2022-03-21 11:44] LABS: ALBUMIN 4.2 g/dl (3.4-5.0); CALCIUM 9.5 mg/dL (8.5-10.1)
[2022-03-21 11:49] LABS: BILIRUBIN,TOTAL 0.7 mg/dL (0.2-1); TOT PROT 7.3 g/dl (6.4-8.2)
[2022-03-21] MEDS: RIVAROXABAN 20 MG TABLET PO SCH (17:00)
[2022-03-21] MEDS: DOCUSATE SODIUM 100 MG CAPSULE (FP) PO PRN (17:01)
[2022-03-21] MEDS: NICOTINE 10 MG CARTRIDGE (INHALER) IH PRN (18:47)
[2022-03-21] MEDS: THIAMINE HCL 100 MG TABLET (FP) PO SCH (21:13)
[2022-03-21] MEDS: ROSUVASTATIN CA 10 MG TABLET PO SCH (21:13)
[2022-03-21] MEDS: MELATONIN 5 MG TABLETS PO SCH (21:13)
[2022-03-21] MEDS: QUEtiapine FUMARATE 100 MG TABLET (FP) PO PRN (23:08)
[2022-03-22] MEDS: ASPIRIN 81 MG CHEWABLE TABLETS PO SCH (06:18)
[2022-03-22] MEDS: FERROUS SO4 325 MG TABLET (FP) PO SCH ×3 (07:10→18:12)
[2022-03-22] MEDS: amLODIPine BESYLATE 10 MG TABLET (FP) PO SCH (10:30)
[2022-03-22] MEDS: metoPROLOL SUCCINATE 25 MG TAB.SR.24H (FP) PO SCH ×2 (10:30→21:05)
[2022-03-22] MEDS: PRENATAL VITAMINS W/ FOLIC ACID TABLET (FP) PO SCH (10:30)
[2022-03-22] MEDS: FINASTERIDE 5 MG TABLET (FP) PO SCH (10:30)
[2022-03-22] MEDS: DOCUSATE SODIUM 100 MG CAPSULE (FP) PO PRN ×2 (10:31→21:05)
[2022-03-22] MEDS: ACETAMINOPHEN 325 MG TABLET (FP) PO PRN ×2 (10:31→22:03)
[2022-03-22] MEDS: hydrOXYzine PAMOATE 25 MG CAPSULE (FP) PO PRN (11:44)
[2022-03-22] MEDS ORDERED: NALTREXONE HCL 50 MG TABLET PO SCH (13:38)
[2022-03-22] MEDS: RIVAROXABAN 20 MG TABLET PO SCH (18:12)
[2022-03-22] MEDS: MELATONIN 5 MG TABLETS PO SCH (21:05)
[2022-03-22] MEDS: THIAMINE HCL 100 MG TABLET (FP) PO SCH (21:05)
[2022-03-22] MEDS: ROSUVASTATIN CA 10 MG TABLET PO SCH (21:05)
[2022-03-22] MEDS: QUEtiapine FUMARATE 100 MG TABLET (FP) PO PRN (22:24)
[2022-03-23] MEDS: NICOTINE 10 MG CARTRIDGE (INHALER) IH PRN (05:52)
[2022-03-23] MEDS: ASPIRIN 81 MG CHEWABLE TABLETS PO SCH (06:09)
[2022-03-23] MEDS: FERROUS SO4 325 MG TABLET (FP) PO SCH (07:02)
[2022-03-23 07:13] VITALS: BP 126/72; PULSE 75; TEMP 97.8
[2022-03-23] MEDS: ACETAMINOPHEN 325 MG TABLET (FP) PO PRN (09:43)
[2022-03-23] MEDS: PRENATAL VITAMINS W/ FOLIC ACID TABLET (FP) PO SCH (09:45)
[2022-03-23] MEDS: FINASTERIDE 5 MG TABLET (FP) PO SCH (09:45)
[2022-03-23] MEDS: amLODIPine BESYLATE 10 MG TABLET (FP) PO SCH (09:45)
[2022-03-23] MEDS: metoPROLOL SUCCINATE 25 MG TAB.SR.24H (FP) PO SCH (09:45)
[2022-03-23] MEDS ORDERED: NALTREXONE HCL 50 MG TABLET PO SCH (10:00)
== END 2022-03-23 10:00 | disposition home or self-care (01) | DRG 897 ==
LOC: YASAS 11:16 → Y3N 13:55 → Y3W 03-16 11:42
PROVIDERS: ADMIT Neuromusculoskeletal Medicine & OMM; ATTEND Neuromusculoskeletal Medicine & OMM
PROC: HZ2ZZZZ Detoxification Services for Substance Abuse Treatment (ICD-10-PCS; principal; 2022-03-11)
DX: F10.20 Alcohol dependence, uncomplicated (principal); F14.20 Cocaine dependence, uncomplicated; F17.210 Nicotine dependence, cigarettes, uncomplicated; F10.282 Alcohol dependence with alcohol-induced sleep disorder; F10.24 Alcohol dependence with alcohol-induced mood disorder; D64.9 Anemia, unspecified; I25.10 Atherosclerotic heart disease of native coronary artery without angina pectoris; I10 Essential (primary) hypertension; Z95.5 Presence of coronary angioplasty implant and graft; M17.0 Bilateral primary osteoarthritis of knee; E66.9 Obesity, unspecified; Z68.34 Body mass index [BMI] 34.0-34.9, adult; Z79.01 Long term (current) use of anticoagulants; Z88.0 Allergy status to penicillin
CPT/HCPCS: 36415; 80053; 82607; 82746; 82947; 83540; 83550; 85027; 85045; 85610; 86780; 87811; C9803-CS; U0003; U0005

== ENCOUNTER 2022-06-14 14:53 | Inpatient (IN) | payer OTHER ==
[2022-06-14] MEDS ORDERED: MAG HYDROX/AL HYDROX/SIMETH 30 ML UNIT-DOSE CUP PO PRN (18:32)
[2022-06-14] MEDS ORDERED: METHOCARBAMOL 500 MG TABLET PO PRN (18:32)
[2022-06-14] MEDS ORDERED: ONDANSETRON *ODT* 4 MG TABLET SL PRN (18:32)
[2022-06-14] MEDS ORDERED: DICYCLOMINE HCL 10 MG CAPSULE PO PRN (18:32)
[2022-06-14] MEDS ORDERED: MAGNESIUM HYDROX 2400MG/30ML ORAL SUSPENSION 30 ML CUP PO PRN (18:32)
[2022-06-14] MEDS ORDERED: MAGNESIUM CITRATE 300 ML BOTTLE PO PRN (18:32)
[2022-06-14] MEDS ORDERED: BENZOCAINE/MENTHOL (CHLORASEPTIC ) LOZENGE MM PRN (18:32)
[2022-06-14] MEDS ORDERED: IBUPROFEN 400 MG TABLET (FP) PO PRN (18:32)
[2022-06-14] MEDS ORDERED: LOPERAMIDE HCL 2 MG CAPSULE PO PRN (18:32)
[2022-06-14] MEDS ORDERED: IBUPROFEN 600 MG TABLET (FP) PO PRN (18:32)
[2022-06-14] MEDS ORDERED: LORazepam 1 MG TABLET PO PRN (18:32)
[2022-06-14] MEDS ORDERED: ACETAMINOPHEN 325 MG TABLET (FP) PO PRN ×2 (18:32)
[2022-06-14] MEDS ORDERED: BISMUTH SUBSALICYLATE 524 MG/30 ML PO PRN (18:32)
[2022-06-14] MEDS ORDERED: DOCUSATE SODIUM 100 MG CAPSULE (FP) PO PRN (18:38)
[2022-06-14] MEDS ORDERED: QUEtiapine FUMARATE 50 MG TABLET PO ONE ×2 (18:47→22:00)
[2022-06-14] MEDS ORDERED: LORazepam 2 MG TABLET ONE (22:45)
[2022-06-14] MEDS: THIAMINE HCL 100 MG TABLET (FP) PO SCH (22:50)
[2022-06-14] MEDS: MELATONIN 5 MG TABLETS PO SCH (22:51)
[2022-06-14] MEDS: hydrOXYzine PAMOATE 25 MG CAPSULE (FP) PO SCH (22:51)
[2022-06-14] MEDS: LORazepam 2 MG TABLET PO SCH (22:51)
[2022-06-14] MEDS: PRENATAL VITAMINS W/ FOLIC ACID TABLET (FP) PO SCH (23:59)
[2022-06-15] MEDS: metoPROLOL SUCCINATE 25 MG TAB.SR.24H (FP) PO SCH ×3 (00:05→22:16)
[2022-06-15] MEDS: ROSUVASTATIN CA 10 MG TABLET PO SCH ×2 (00:42→22:16)
[2022-06-15] MEDS: LORazepam 2 MG TABLET PO SCH ×4 (06:42→22:17)
[2022-06-15] MEDS: hydrOXYzine PAMOATE 25 MG CAPSULE (FP) PO SCH ×5 (06:45→22:16)
[2022-06-15] MEDS: ASPIRIN 81 MG CHEWABLE TABLETS PO SCH (07:44)
[2022-06-15] MEDS ORDERED: QUEtiapine FUMARATE 50 MG TABLET PO PRN (08:24)
[2022-06-15] MEDS ORDERED: PATIENT'S OWN MEDICATION (NON-FORMULARY) (Finasteride [Finasteride] 1 MG Tablet) PO SCH (10:00)
[2022-06-15] MEDS: NICOTINE 21 MG/24 HOURS TOPICAL PATCH TD SCH (10:16)
[2022-06-15] MEDS: amLODIPine BESYLATE 10 MG TABLET (FP) PO SCH (10:17)
[2022-06-15] MEDS: PRENATAL VITAMINS W/ FOLIC ACID TABLET (FP) PO SCH (10:17)
[2022-06-15 10:52] LABS: HEMATOCRIT 30.2 % (35.4-49); HEMOGLOBIN 9.5 GM/dL (11.7-16.9); MCH 22.6 pg (25.7-33.7); MCHC 31.6 g/dl (32.0-35.9); MEAN CELL VOLUME 71.7 fl (80-96); MEAN PLT VOLUME 8.5 fl (7.5-11.1); PLATELET COUNT 262 10^3/uL (134-434); RBC 4.22 M/mm3 (4.00-5.60); WHITE BLOOD COUNT 5.3 K/mm3 (4.0-10.0)
[2022-06-15 11:02] LABS: ALBUMIN 3.7 g/dl (3.4-5.0); BLOOD UREA NITROGEN 24.2 mg/dL (7-18)
[2022-06-15 11:05] LABS: CREATININE 0.8 mg/dL (0.55-1.3)
[2022-06-15 11:06] LABS: BILIRUBIN,TOTAL 0.2 mg/dL (0.2-1); TOT PROT 6.8 g/dl (6.4-8.2)
[2022-06-15] MEDS: RIVAROXABAN 20 MG TABLET PO SCH (12:05)
[2022-06-15] MEDS: THIAMINE HCL 100 MG TABLET (FP) PO SCH (22:16)
[2022-06-15] MEDS: MELATONIN 5 MG TABLETS PO SCH (22:18)
[2022-06-16] MEDS: LORazepam 1 MG TABLET PO SCH ×2 (05:06→10:06)
[2022-06-16] MEDS: hydrOXYzine PAMOATE 25 MG CAPSULE (FP) PO SCH ×3 (05:07→12:59)
[2022-06-16] MEDS: ASPIRIN 81 MG CHEWABLE TABLETS PO SCH (07:14)
[2022-06-16] MEDS: PRENATAL VITAMINS W/ FOLIC ACID TABLET (FP) PO SCH (10:05)
[2022-06-16] MEDS: amLODIPine BESYLATE 10 MG TABLET (FP) PO SCH (10:05)
[2022-06-16] MEDS: RIVAROXABAN 20 MG TABLET PO SCH (10:05)
[2022-06-16] MEDS: metoPROLOL SUCCINATE 25 MG TAB.SR.24H (FP) PO SCH (10:05)
[2022-06-16] MEDS: NICOTINE 21 MG/24 HOURS TOPICAL PATCH TD SCH ×2 (10:07→12:56)
[2022-06-16 12:09] LABS: BLOOD UREA NITROGEN 19.5 mg/dL (7-18)
[2022-06-16 12:13] LABS: HEMATOCRIT 30.1 % (35.4-49); HEMOGLOBIN 9.7 GM/dL (11.7-16.9); MCH 23.1 pg (25.7-33.7); MCHC 32.3 g/dl (32.0-35.9); MEAN CELL VOLUME 71.6 fl (80-96); PLATELET COUNT 259 10^3/uL (134-434); RBC 4.21 M/mm3 (4.00-5.60); RDW 19.4 % (11.9-15.9); RETICULOCYTES 1.94 % (0.5-1.5); WHITE BLOOD COUNT 5.1 K/mm3 (4.0-10.0)
[2022-06-16 15:22] LABS: INR 0.98 (0.83-1.09); PROTHROMBIN TIME (PATIENT) 11.3 SEC (9.7-13.0)
[2022-06-16 18:52] VITALS: BP 128/84; PULSE 84; RESP 18; TEMP 98.2
[2022-06-17] MEDS ORDERED: LORazepam 0.5 MG TABLET PO PRN
[2022-06-17] MEDS ORDERED: LORazepam 0.5 MG TABLET PO SCH (05:00)
[2022-06-18] MEDS ORDERED: LORazepam 0.5 MG TABLET PO ONE (05:00)
== END 2022-06-16 17:24 | disposition left against medical advice (07) | DRG 894 ==
LOC: YASAS 14:53 → Y3N 23:03
PROVIDERS: ADMIT Allergy & Immunology; ATTEND Surgery
PROC: HZ2ZZZZ Detoxification Services for Substance Abuse Treatment (ICD-10-PCS; principal; 2022-06-14)
DX: F10.230 Alcohol dependence with withdrawal, uncomplicated (principal); F14.20 Cocaine dependence, uncomplicated; F10.282 Alcohol dependence with alcohol-induced sleep disorder; F17.210 Nicotine dependence, cigarettes, uncomplicated; I10 Essential (primary) hypertension; E78.5 Hyperlipidemia, unspecified; I25.10 Atherosclerotic heart disease of native coronary artery without angina pectoris; M17.0 Bilateral primary osteoarthritis of knee; Z85.53 Personal history of malignant neoplasm of renal pelvis; E66.9 Obesity, unspecified; Z68.34 Body mass index [BMI] 34.0-34.9, adult; Z88.0 Allergy status to penicillin; Z95.5 Presence of coronary angioplasty implant and graft; Z56.0 Unemployment, unspecified
CPT/HCPCS: 36415; 80053; 82607; 82746; 82947; 83036; 83540; 83550; 84520; 85027; 85045; 85610; 86780; C9803-CS; U0003; U0005

== ENCOUNTER 2022-07-16 10:53 | Inpatient (IN) | payer OTHER ==
[2022-07-16 12:31] VITALS: BMI 33.5
[2022-07-16] MEDS ORDERED: MAGNESIUM CITRATE 300 ML BOTTLE PO PRN (13:42)
[2022-07-16] MEDS ORDERED: IBUPROFEN 600 MG TABLET (FP) PO PRN (13:42)
[2022-07-16] MEDS ORDERED: ONDANSETRON *ODT* 4 MG TABLET SL PRN (13:42)
[2022-07-16] MEDS ORDERED: MAG HYDROX/AL HYDROX/SIMETH 30 ML UNIT-DOSE CUP PO PRN (13:42)
[2022-07-16] MEDS ORDERED: NICOTINE POLACRILEX 2 MG GUM BUC PRN (13:42)
[2022-07-16] MEDS ORDERED: NICOTINE 10 MG CARTRIDGE (INHALER) IH PRN (13:42)
[2022-07-16] MEDS ORDERED: BISMUTH SUBSALICYLATE 524 MG/30 ML PO PRN (13:42)
[2022-07-16] MEDS ORDERED: IBUPROFEN 400 MG TABLET (FP) PO PRN (13:42)
[2022-07-16] MEDS ORDERED: DICYCLOMINE HCL 10 MG CAPSULE PO PRN (13:42)
[2022-07-16] MEDS ORDERED: MAGNESIUM HYDROX 2400MG/30ML ORAL SUSPENSION 30 ML CUP PO PRN (13:42)
[2022-07-16] MEDS ORDERED: BENZOCAINE/MENTHOL (CHLORASEPTIC ) LOZENGE MM PRN (13:42)
[2022-07-16] MEDS ORDERED: LOPERAMIDE HCL 2 MG CAPSULE PO PRN (13:42)
[2022-07-16] MEDS ORDERED: ACETAMINOPHEN 325 MG TABLET (FP) PO PRN (13:42)
[2022-07-16] MEDS ORDERED: PATIENT'S OWN MEDICATION (NON-FORMULARY) (Finasteride [Finasteride] 1 MG Tablet) PO SCH (14:00)
[2022-07-16] MEDS ORDERED: amLODIPine BESYLATE 5 MG TABLET (FP) PO ONE (14:00)
[2022-07-16] MEDS ORDERED: hydrOXYzine PAMOATE 25 MG CAPSULE (FP) PO ONE (14:05)
[2022-07-16] MEDS ORDERED: METOPROLOL TARTRATE 25 MG TABLET (FP) ONE (14:05)
[2022-07-16] MEDS: metoPROLOL SUCCINATE 25 MG TAB.SR.24H (FP) PO SCH ×2 (14:08→22:09)
[2022-07-16] MEDS: hydrOXYzine PAMOATE 25 MG CAPSULE (FP) PO SCH ×3 (14:09→22:09)
[2022-07-16] MEDS: PRENATAL VITAMINS W/ FOLIC ACID TABLET (FP) PO SCH (15:17)
[2022-07-16] MEDS: chlordiazePOXIDE HCL 25 MG CAPSULE PO PRN (15:18)
[2022-07-16] MEDS: chlordiazePOXIDE HCL 25 MG CAPSULE PO SCH ×3 (16:18→22:10)
[2022-07-16] MEDS: ACETAMINOPHEN 325 MG TABLET (FP) PO PRN (17:49)
[2022-07-16] MEDS ORDERED: LISINOPRIL 5 MG TABLET PO ONE (18:19)
[2022-07-16] MEDS: MELATONIN 5 MG TABLETS PO SCH (22:09)
[2022-07-16] MEDS: THIAMINE HCL 100 MG TABLET (FP) PO SCH (22:09)
[2022-07-16] MEDS: QUEtiapine FUMARATE 100 MG TABLET (FP) PO SCH (22:09)
[2022-07-17] MEDS: chlordiazePOXIDE HCL 25 MG CAPSULE PO SCH ×4 (06:45→22:20)
[2022-07-17] MEDS: hydrOXYzine PAMOATE 25 MG CAPSULE (FP) PO SCH ×5 (06:46→22:17)
[2022-07-17] MEDS: amLODIPine BESYLATE 10 MG TABLET (FP) PO SCH (10:03)
[2022-07-17] MEDS: ASPIRIN 81 MG CHEWABLE TABLETS PO SCH (10:03)
[2022-07-17] MEDS: PRENATAL VITAMINS W/ FOLIC ACID TABLET (FP) PO SCH (10:03)
[2022-07-17] MEDS: metoPROLOL SUCCINATE 25 MG TAB.SR.24H (FP) PO SCH ×2 (10:03→22:17)
[2022-07-17] MEDS ORDERED: PNEUMOC 20-VAL CONJ-DIP CRM/PF 0.5 ML SYRINGE IM ONE (12:00)
[2022-07-17] MEDS: chlordiazePOXIDE HCL 25 MG CAPSULE PO PRN (13:38)
[2022-07-17 14:36] LABS: HEMATOCRIT 33.6 % (35.4-49); HEMOGLOBIN 10.5 GM/dL (11.7-16.9); MCH 22.5 pg (25.7-33.7); MCHC 31.1 g/dl (32.0-35.9); MEAN CELL VOLUME 72.3 fl (80-96); MEAN PLT VOLUME 8.9 fl (7.5-11.1); PLATELET COUNT 255 10^3/uL (134-434); RBC 4.65 M/mm3 (4.00-5.60); RDW 19.3 % (11.9-15.9)
[2022-07-17 14:41] LABS: ALBUMIN 3.7 g/dl (3.4-5.0)
[2022-07-17 14:43] LABS: BILIRUBIN,TOTAL 0.3 mg/dL (0.2-1); TOT PROT 6.7 g/dl (6.4-8.2)
[2022-07-17 14:44] LABS: CREATININE 0.7 mg/dL (0.55-1.3)
[2022-07-17] MEDS: RIVAROXABAN 20 MG TABLET PO SCH (15:50)
[2022-07-17] MEDS: ACETAMINOPHEN 325 MG TABLET (FP) PO PRN (20:51)
[2022-07-17] MEDS: QUEtiapine FUMARATE 100 MG TABLET (FP) PO SCH (22:17)
[2022-07-17] MEDS: THIAMINE HCL 100 MG TABLET (FP) PO SCH (22:17)
[2022-07-17] MEDS: MELATONIN 5 MG TABLETS PO SCH (22:18)
[2022-07-17] MEDS: ROSUVASTATIN CA 10 MG TABLET PO SCH (22:19)
[2022-07-18] MEDS: hydrOXYzine PAMOATE 25 MG CAPSULE (FP) PO SCH ×5 (05:39→22:09)
[2022-07-18] MEDS: ASPIRIN 81 MG CHEWABLE TABLETS PO SCH (06:07)
[2022-07-18] MEDS: chlordiazePOXIDE HCL 25 MG CAPSULE PO SCH ×4 (06:08→22:08)
[2022-07-18] MEDS: METHOCARBAMOL 500 MG TABLET PO PRN ×2 (10:16→20:06)
[2022-07-18] MEDS: PRENATAL VITAMINS W/ FOLIC ACID TABLET (FP) PO SCH (10:16)
[2022-07-18] MEDS: amLODIPine BESYLATE 10 MG TABLET (FP) PO SCH (10:16)
[2022-07-18] MEDS: RIVAROXABAN 20 MG TABLET PO SCH (10:17)
[2022-07-18] MEDS: metoPROLOL SUCCINATE 25 MG TAB.SR.24H (FP) PO SCH ×2 (10:17→22:09)
[2022-07-18] MEDS: DOCUSATE SODIUM 100 MG CAPSULE (FP) PO PRN ×2 (10:18→22:09)
[2022-07-18] MEDS: ACETAMINOPHEN 325 MG TABLET (FP) PO PRN (20:06)
[2022-07-18] MEDS: MELATONIN 5 MG TABLETS PO SCH (22:09)
[2022-07-18] MEDS: QUEtiapine FUMARATE 100 MG TABLET (FP) PO SCH (22:09)
[2022-07-18] MEDS: THIAMINE HCL 100 MG TABLET (FP) PO SCH (22:09)
[2022-07-18] MEDS: ROSUVASTATIN CA 10 MG TABLET PO SCH (22:09)
[2022-07-19] MEDS ORDERED: chlordiazePOXIDE HCL 10 MG CAPSULE PO PRN
[2022-07-19] MEDS: chlordiazePOXIDE HCL 10 MG CAPSULE PO SCH ×4 (08:14→22:49)
[2022-07-19] MEDS: ASPIRIN 81 MG CHEWABLE TABLETS PO SCH (08:15)
[2022-07-19] MEDS: hydrOXYzine PAMOATE 25 MG CAPSULE (FP) PO SCH ×5 (08:15→22:32)
[2022-07-19] MEDS ORDERED: POLYETHYLENE GLYCOL (HEALTHYLAX) 3350 17 GM PACKET PO SCH (10:00)
[2022-07-19] MEDS: RIVAROXABAN 20 MG TABLET PO SCH (10:27)
[2022-07-19] MEDS: amLODIPine BESYLATE 10 MG TABLET (FP) PO SCH (10:27)
[2022-07-19] MEDS: PRENATAL VITAMINS W/ FOLIC ACID TABLET (FP) PO SCH (10:27)
[2022-07-19] MEDS: metoPROLOL SUCCINATE 25 MG TAB.SR.24H (FP) PO SCH ×2 (10:27→22:32)
[2022-07-19] MEDS: DOCUSATE SODIUM 100 MG CAPSULE (FP) PO PRN ×2 (10:28→22:32)
[2022-07-19] MEDS: ACETAMINOPHEN 325 MG TABLET (FP) PO PRN ×3 (10:29→21:17)
[2022-07-19] MEDS: THIAMINE HCL 100 MG TABLET (FP) PO SCH (22:32)
[2022-07-19] MEDS: ROSUVASTATIN CA 10 MG TABLET PO SCH (22:32)
[2022-07-19] MEDS: MELATONIN 5 MG TABLETS PO SCH (22:32)
[2022-07-19] MEDS: QUEtiapine FUMARATE 100 MG TABLET (FP) PO SCH (22:59)
[2022-07-20] MEDS ORDERED: chlordiazePOXIDE HCL 10 MG CAPSULE PO SCH (05:00)
[2022-07-20] MEDS: hydrOXYzine PAMOATE 25 MG CAPSULE (FP) PO SCH (05:27)
[2022-07-20] MEDS: ACETAMINOPHEN 325 MG TABLET (FP) PO PRN (06:55)
[2022-07-20] MEDS: ASPIRIN 81 MG CHEWABLE TABLETS PO SCH (07:00)
[2022-07-20 07:08] VITALS: RESP 18
[2022-07-20 09:16] VITALS: BP 146/83; PULSE 88; TEMP 97.3
[2022-07-21] MEDS ORDERED: chlordiazePOXIDE HCL 10 MG CAPSULE PO ONE (05:00)
== END 2022-07-20 09:52 | disposition home or self-care (01) | DRG 897 ==
LOC: YASAS 10:53 → Y3N 14:15
PROVIDERS: ADMIT Allergy & Immunology; ATTEND Surgery
PROC: HZ2ZZZZ Detoxification Services for Substance Abuse Treatment (ICD-10-PCS; principal; 2022-07-16)
DX: F10.230 Alcohol dependence with withdrawal, uncomplicated (principal); F14.20 Cocaine dependence, uncomplicated; Z68.1 Body mass index [BMI] 19.9 or less, adult; F17.210 Nicotine dependence, cigarettes, uncomplicated; E78.5 Hyperlipidemia, unspecified; I25.10 Atherosclerotic heart disease of native coronary artery without angina pectoris; I10 Essential (primary) hypertension; Z95.5 Presence of coronary angioplasty implant and graft; G47.00 Insomnia, unspecified; M17.0 Bilateral primary osteoarthritis of knee; N40.0 Benign prostatic hyperplasia without lower urinary tract symptoms; E66.9 Obesity, unspecified; Z88.0 Allergy status to penicillin
CPT/HCPCS: 36415; 80053; 85027; 86780; 90677; C9803-CS; U0003; U0005